=== PATIENT | female | born 1985 | race Caucasian/White ===

== ENCOUNTER → 2017-01-14 | Day surgery (SDC) | payer OTHER ==
[~2017-01-14] VITALS: Ht 157.5 cm; Wt 37.7 kg
[~2017-01-14] MED LIST: ALBUTEROL 0.083% NEBU SOLN 3 ML VIAL INH STA; ALPR0.5T PO; ATROPINE SULFATE 0.1 MG/ML 5ML SYR IV PRN; EpHEDrine SULFATE INJ 50 MG/ML AMP IV PRN; FENTANYL CITRATE INJ 50 MCG/1 ML 2 ML VIAL ONE; FLUT1INH7 INH; IPRASOL4 INH; MIDAZOLAM HCL 1 MG/ML 2ML VIAL ONE; MONT1TAB3 PO; MULT-506 PO; ONDANSETRON INJ 2 MG/ML 2 ML VIAL IV PRN; PROPOFOL IV EMULSION 10 MG/ML 20 ML VIAL IV ONE; SPRIN/30 INH; VNTHFA/IN INH
[2017-01-14 09:48] VITALS: Ht 157.5 cm; Wt 37.7 kg
--- NOTE | 2017-01-14 09:48 | Endo History and Physical ---
History & Physical Date of Service: Jan 14, 2017. Chief Complaint: Weight loss Referring Physician: History of Present Illness Patient with a history of IBD for evaluation of weight loss and a positive anti- gliadin ab. Allergies Coded Allergies: No Known Allergies (Unverified , 01/14/17) Physical Exam General Appearance: no apparent distress Respiratory/Chest: Auscultation: deminished air movement Cardiovascular: Heart Auscultation: RRR Abdomen: Inspection & Palpation: soft Assessment and Plan EGD for evaluation of weight loss and a positive antigliadin ab. Plan EGD today
--- NOTE | 2017-01-14 10:52 | GI REPORT ---
Procedure Date: 01/14/2017 10:35 AM Procedure: Upper GI endoscopy Indications: Weight loss Medicines: Monitored Anesthesia Care Complications: No immediate complications. Estimated blood loss: Minimal. Estimated Blood Loss: Estimated blood loss was minimal. Procedure: Pre-Anesthesia Assessment: - Prior to the procedure, a History and Physical was performed, and patient medications, allergies and sensitivities were reviewed. The patient's tolerance of previous anesthesia was reviewed. - The risks and benefits of the procedure and the sedation options and risks were discussed with the patient. All questions were answered and informed consent was obtained. - Patient identification and proposed procedure were verified prior to the procedure by the physician, the nurse and the commercial art instructor. The procedure was verified in the procedure room. - Pre-procedure physical examination revealed no contraindications to sedation. - ASA Grade Assessment: III - A patient with severe systemic disease. - After reviewing the risks and benefits, the patient was deemed in satisfactory condition to undergo the procedure. - The anesthesia plan was to use monitored anesthesia care (MAC). - Immediately prior to administration of medications, the patient was re-assessed for adequacy to receive sedatives. - The heart rate, respiratory rate, oxygen saturations, blood pressure, adequacy of pulmonary ventilation, and response to care were monitored throughout the procedure. - The physical status of the patient was re-assessed after the procedure. After obtaining informed consent, the endoscope was passed under direct vision. Throughout the procedure, the patient's blood pressure, pulse, and oxygen saturations were monitored continuously. The scope was introduced through the mouth, and advanced to the third part of duodenum. The upper GI endoscopy was accomplished without difficulty. The patient tolerated the procedure well. Findings: The upper third of the esophagus and middle third of the esophagus were normal. The Z-line was irregular and was found 36 cm from the incisors. Biopsies were taken with a cold forceps for histology. Estimated blood loss was minimal. A small hiatus hernia was found. The proximal extent of the gastric folds (end of tubular esophagus) was 36 cm from the incisors. The hiatal narrowing was 38 cm from the incisors. The Z-line was 36 cm from the incisors. Diffuse mild inflammation characterized by congestion (edema) and granularity was found in the entire examined stomach. Biopsies were taken with a cold forceps for histology. Estimated blood loss was minimal. The examined duodenum was normal. Biopsies for histology were taken with a cold forceps for evaluation of celiac disease. Estimated blood loss was minimal. Impression: - Normal upper third of esophagus and middle third of esophagus. - Z-line irregular, 36 cm from the incisors. Biopsied. - Small hiatus hernia. - Gastritis. Biopsied. - Normal examined duodenum. Biopsied. Recommendation: - Discharge patient to home (ambulatory). - Advance diet as tolerated today. - Await pathology results. Marizta May D.O. Maritza May, 01/14/2017 10:51:56 AM This report has been signed electronically. Note Initiated On: 01/14/2017 10:35 AM I attest to the content of the Intraoperative Record and orders documented therein, exceptions below
[2017-01-14 11:15] VITALS: PULSE 82; O2SAT 98
[2017-01-14 11:29] VITALS: BP 101/62; PULSE 77; O2SAT 92
--- NOTE | 2017-01-14 11:45 | Discharge Instructions ---
Endoscopy Patient Instructions Date / Procedure(s) Performed Jan 14, 2017. EGD Allergy Information Coded Allergies: No Known Allergies (Unverified , 01/14/17) Discharge Date / Findings Jan 14, 2017. Normal appearing doudenum Mild gastritis (medication related) Medication Instructions Reported Home Medications Medications Dose Route/Sig Max Daily Dose Days Date Category Singulair (Montelukast Sodium) 10 Mg Tab 1 Tab PO DAILY 90 01/14/17 Reported Ventolin Hfa (Albuterol) 200 Puffs/24613 Mcg Aers 2-4 Puffs INH Q4H PRN 01/14/17 Reported Duoneb (Ipratropium-Albuterol) 3 Ml Nebu 1 Treatment INH Q4H PRN 01/14/17 Reported Spiriva Handihaler (Tiotropium [place]) 30 Puff/540 Mcg Aerp 1 Cap INH DAILY 01/14/17 Reported Breo Ellipta 200-25 Mcg/INH (Fluticasone Furoate-Vilanterol) 1 Inh Inh HS 01/14/17 Reported Provider Instructions Activity Restrictions - No exercising or heavy lifting for 24 hours. - Do not drink alcohol the day of the procedure. - Do not drive a car or operate machinery until the day after the procedure. - Do not make any important decisions or sign important papers in 24 hours after the procedure. Following Day: - Return to full activity which may include returning to work/school. Diet Start your diet with liquids and light foods (jello, soup, juice, toast). Then eat your usual diet if not nauseated. Treatment For Common After Affects For mild abdominal pain, bloating, or excessive gas: - Rest - Eat lightly - Lie on right side Follow-Up Information If small bowel biopsies consistent with Celiac disease will need to have you see a Bulk Plant Operator for assistance with a Gluten free diet. Anesthesia Information What You Should Know You have had a procedure that required some medicine to reduce anxiety and discomfort. This treatment is called moderate sedation. After receiving the treatment, you may be sleepy, but you will be able to breathe on your own. The effects of the treatment may last for several hours. Follow these instructions along with Activity/Diet recommendations noted above: * Do NOT do anything where dizziness or clumsiness would be dangerous. * Rest quietly at home today, then you can be up and about tomorrow. * Have a responsible person stay with you the rest of today. * You may have had an I.V. today. If so, you may take the dressing off later today. Recommendations Call your doctor if: * Trouble breathing * Continuous vomiting for more than 24 hours * Temperature above 101 degrees * Severe abdominal pain or bloating * Pain not relieved by pain medicine ordered * There is increased drainage or redness from any incision * A large amount of rectal bleeding greater than 2-3 tablespoons. (If you had a polyp/s removed or have hemorrhoids, a small amount of blood - from the rectum is to be expected.) * You have any unanswered questions or concerns. IN THE EVENT OF A SERIOUS EMERGENCY, GO TO THE NEAREST EMERGENCY ROOM Your discharge instructions were prepared by provider Maritza May. Patient Instructions Signature Page Cecile Truong Patient (or Guardian) Signature/Date: I have read and understand the instructions given to me by my caregivers. Caregiver/RN/Doctor Signature/Date: The above-named patient and/or guardian has received patient instructions on this date. + Original Patient Signature Page (only) stays with chart. Please make copy for patient.
--- NOTE | 2017-01-14 11:51 | Anesthesiology Progress Note ---
Anesthesia Post Op Note Date & Time Jan 14, 2017 at 11:51 Vital Signs Pain Intensity: 5 Vital Signs Past 12 Hours Date Time Temp Pulse Resp B/P (MAP) Pulse Ox O2 Delivery O2 Flow Rate FiO2 01/14/17 11:29 77 20 101/62 (75) 92 Room Air 01/14/17 11:15 78 20 98/57 (71) 98 Room Air 01/14/17 11:15 82 16 98 Diffusion Mask 9.0 01/14/17 11:00 36.7 87 20 125/68 (87) 99 Diffusion Mask 01/14/17 10:04 36.7 88 20 98/64 (75) 91 Room Air Notes Mental Status: alert / awake / arousable, participated in evaluation Pt Amnestic to Procedure: Yes Nausea / Vomiting: adequately controlled Pain: adequately controlled Airway Patency, RR, SpO2: stable & adequate BP & HR: stable & adequate Hydration State: stable & adequate Anesthetic Complications: no major complications apparent
== END | disposition home or self-care (01) ==
LOC: C.GI 09:22
PROVIDERS: ATTEND Internal Medicine Gastroenterology
DX: K44.9 Diaphragmatic hernia without obstruction or gangrene (principal); K29.51 Unspecified chronic gastritis with bleeding; K20.9 Esophagitis, unspecified; R63.4 Abnormal weight loss; Z87.19 Personal history of other diseases of the digestive system

== ENCOUNTER → 2017-02-25 | Day surgery (SDC) | payer OTHER ==
[2017-02-21 14:37] VITALS: Ht 157.5 cm; Wt 37.7 kg
[~2017-02-25] VITALS: Ht 157.5 cm; Wt 37.7 kg
[~2017-02-25] MED LIST changes: -ALBUTEROL 0.083% NEBU SOLN 3 ML VIAL INH STA; -ATROPINE SULFATE 0.1 MG/ML 5ML SYR IV PRN; -EpHEDrine SULFATE INJ 50 MG/ML AMP IV PRN; -FENTANYL CITRATE INJ 50 MCG/1 ML 2 ML VIAL ONE; +LIDOCAINE HCL 2% 2 ML VIAL (20MG/ML) ONE; -MIDAZOLAM HCL 1 MG/ML 2ML VIAL ONE; +SODIUM CHLORIDE 0.9% 500ML 500 ML IV ONE
--- NOTE | 2017-02-25 13:44 | Endo History and Physical ---
History & Physical Date of Service: Feb 25, 2017. Chief Complaint: abdominal pain Referring Physician: Dr. Arnaud Paredes History of Present Illness The patient presents today for evaluation of weight changes over the last 6 months. She has a history of Crohn's disease and is presently on Remicade. Prior to starting a biologic she was having 15 bowel movements per day. She now notes having problems with constipation. Past Surgical History Hx Cardiac Surgery: No Hx Internal Defibrillator: No Hx Pacemaker: No Hx Abdominal Surgery: Yes (COLON RESECTION, JAE) Hx of Implantable Prosthesis: No Hx Post-Op Nausea and Vomiting: No Hx Cancer Surgery: No Hx Thoracic Surgery: No Hx Orthopedic: Yes (LT LEG REPAIR) Hx Urinary Tract Surgery: No Family History None Social History Smoking Status: Current Every Day Smoker Hx Substance Use: No Hx Alcohol Use: No Allergies Coded Allergies: No Known Allergies (Verified , 02/25/17) Current Medications Reported Home Medications Medications Dose Route/Sig Max Daily Dose Days Date Category Xanax (Alprazolam) 0.5 Mg Tab 0.5 Mg PO Q6H PRN 02/21/17 Reported Multivitamin (Multivitamins) Tab 1 Tab PO QAM 02/21/17 Reported Singulair (Montelukast Sodium) 10 Mg Tab 1 Tab PO QAM 01/14/17 Reported Ventolin Hfa (Albuterol) 200 Puffs/75334 Mcg Aers 2-4 Puffs INH Q4H PRN 01/14/17 Reported Duoneb (Ipratropium-Albuterol) 3 Ml Nebu 1 Treatment INH Q4H PRN 01/14/17 Reported Spiriva Handihaler (Tiotropium [place]) 30 Puff/540 Mcg Aerp 1 Cap INH HS 01/14/17 Reported Breo Ellipta 200-25 Mcg/INH (Fluticasone Furoate-Vilanterol) 1 Inh Inh 1 Puff INH HS 01/14/17 Reported Vital Signs Weight (Kilograms): 37.73 Height (Feet): 5 Height (Inches): 2 Date Time Temp Pulse Resp B/P (MAP) Pulse Ox O2 Delivery O2 Flow Rate FiO2 02/25/17 12:28 36.9 66 16 105/64 (78) 94 Room Air Physical Exam General Appearance: no apparent distress Abdomen: Inspection & Palpation: soft Assessment and Plan Patient with a history of inflammatory bowel disease now with weight changes of the last 6 months. We are pursuing a colonoscopy to evaluate for obvious colorectal changes.
--- NOTE | 2017-02-25 14:13 | GI REPORT ---
Procedure Date: 02/25/2017 1:29 PM Procedure: Colonoscopy Indications: High risk colon cancer surveillance: Crohn's disease Medicines: Monitored Anesthesia Care Complications: No immediate complications. Estimated blood loss: Minimal. Estimated Blood Loss: Estimated blood loss was minimal. Procedure: Pre-Anesthesia Assessment: - Prior to the procedure, a History and Physical was performed, and patient medications, allergies and sensitivities were reviewed. The patient's tolerance of previous anesthesia was reviewed. - The risks and benefits of the procedure and the sedation options and risks were discussed with the patient. All questions were answered and informed consent was obtained. - Patient identification and proposed procedure were verified prior to the procedure by the physician, the nurse and the change director. The procedure was verified in the procedure room. - Pre-procedure physical examination revealed no contraindications to sedation. - ASA Grade Assessment: II - A patient with mild systemic disease. - After reviewing the risks and benefits, the patient was deemed in satisfactory condition to undergo the procedure. - The anesthesia plan was to use monitored anesthesia care (MAC). - Immediately prior to administration of medications, the patient was re-assessed for adequacy to receive sedatives. - The heart rate, respiratory rate, oxygen saturations, blood pressure, adequacy of pulmonary ventilation, and response to care were monitored throughout the procedure. - The physical status of the patient was re-assessed after the procedure. After I obtained informed consent, the scope was passed under direct vision. Throughout the procedure, the patient's blood pressure, pulse, and oxygen saturations were monitored continuously. The scope was introduced through the anus and advanced to the ileocolonic anastomosis. The colonoscopy was performed without difficulty. The patient tolerated the procedure well. The quality of the bowel preparation was good. Findings: The perianal and digital rectal examinations were normal. Pertinent negatives include normal sphincter tone. There was evidence of a prior end-to-side ileo-colonic anastomosis in the ascending colon. This was patent and was characterized by healthy appearing mucosa. The anastomosis was traversed. Normal mucosa was found in the entire colon. Biopsies were taken with a cold forceps from the entire colon for Crohn's disease surveillance and dysplasia surveillance. These biopsy specimens from the entire colon were sent to Pathology. Estimated blood loss was minimal. Internal hemorrhoids were found during endoscopy. The hemorrhoids were mild. I was unable to retroflex in the rectum (fixed fibrosis). The exam was otherwise without abnormality. Impression: - Patent end-to-side ileo-colonic anastomosis, characterized by healthy appearing mucosa. - Normal mucosa in the entire examined colon. Biopsied. - Internal hemorrhoids. - The examination was otherwise normal. Recommendation: - Discharge patient to home (ambulatory). - Advance diet as tolerated today. - Await pathology results. - Repeat colonoscopy in 2 years for surveillance. - Perform magnetic resonance enterography. - No cause of weight loss noted on colonoscopy or EGD. Maritza May D.O. Maritza May, 02/25/2017 2:12:28 PM This report has been signed electronically. Note Initiated On: 02/25/2017 1:29 PM I attest to the content of the Intraoperative Record and orders documented therein, exceptions below
--- NOTE | 2017-02-25 14:14 | Discharge Instructions ---
Endoscopy Patient Instructions Date / Procedure(s) Performed Feb 25, 2017. Colonoscopy Allergy Information Coded Allergies: No Known Allergies (Verified , 02/25/17) Discharge Date / Findings Feb 25, 2017. Healthy-appearing ileocolonic anastomosis Normal colonic mucosa Medication Instructions Reported Home Medications Medications Dose Route/Sig Max Daily Dose Days Date Category Xanax (Alprazolam) 0.5 Mg Tab 0.5 Mg PO Q6H PRN 02/21/17 Reported Multivitamin (Multivitamins) Tab 1 Tab PO QAM 02/21/17 Reported Singulair (Montelukast Sodium) 10 Mg Tab 1 Tab PO QAM 01/14/17 Reported Ventolin Hfa (Albuterol) 200 Puffs/84998 Mcg Aers 2-4 Puffs INH Q4H PRN 01/14/17 Reported Duoneb (Ipratropium-Albuterol) 3 Ml Nebu 1 Treatment INH Q4H PRN 01/14/17 Reported Spiriva Handihaler (Tiotropium [place]) 30 Puff/540 Mcg Aerp 1 Cap INH HS 01/14/17 Reported Breo Ellipta 200-25 Mcg/INH (Fluticasone Furoate-Vilanterol) 1 Inh Inh 1 Puff INH HS 01/14/17 Reported Provider Instructions Activity Restrictions - No exercising or heavy lifting for 24 hours. - Do not drink alcohol the day of the procedure. - Do not drive a car or operate machinery until the day after the procedure. - Do not make any important decisions or sign important papers in 24 hours after the procedure. Following Day: - Return to full activity which may include returning to work/school. Diet Start your diet with liquids and light foods (jello, soup, juice, toast). Then eat your usual diet if not nauseated. Treatment For Common After Affects For mild abdominal pain, bloating, or excessive gas: - Rest - Eat lightly - Lie on right side Follow-Up Information Follow-up with Dr. Arnaud Paredes as scheduled Repeat colonoscopy in 2 years MRI of the small intestine to further evaluate symptoms or weight loss No cause of weight loss seen on recent upper endoscopy or today's colonoscopy Anesthesia Information What You Should Know You have had a procedure that required some medicine to reduce anxiety and discomfort. This treatment is called moderate sedation. After receiving the treatment, you may be sleepy, but you will be able to breathe on your own. The effects of the treatment may last for several hours. Follow these instructions along with Activity/Diet recommendations noted above: * Do NOT do anything where dizziness or clumsiness would be dangerous. * Rest quietly at home today, then you can be up and about tomorrow. * Have a responsible person stay with you the rest of today. * You may have had an I.V. today. If so, you may take the dressing off later today. Recommendations Call your doctor if: * Trouble breathing * Continuous vomiting for more than 24 hours * Temperature above 101 degrees * Severe abdominal pain or bloating * Pain not relieved by pain medicine ordered * There is increased drainage or redness from any incision * A large amount of rectal bleeding greater than 2-3 tablespoons. (If you had a polyp/s removed or have hemorrhoids, a small amount of blood - from the rectum is to be expected.) * You have any unanswered questions or concerns. IN THE EVENT OF A SERIOUS EMERGENCY, GO TO THE NEAREST EMERGENCY ROOM Your discharge instructions were prepared by provider Maritza May. Patient Instructions Signature Page Cecile Truong Patient (or Guardian) Signature/Date: I have read and understand the instructions given to me by my caregivers. Caregiver/RN/Doctor Signature/Date: The above-named patient and/or guardian has received patient instructions on this date. + Original Patient Signature Page (only) stays with chart. Please make copy for patient.
--- NOTE | 2017-02-25 14:26 | Anesthesiology Progress Note ---
Anesthesia Post Op Note Date & Time Feb 25, 2017 at 14:26 Vital Signs Pain Intensity: 3 Vital Signs Past 12 Hours Date Time Temp Pulse Resp B/P (MAP) Pulse Ox O2 Delivery O2 Flow Rate FiO2 02/25/17 14:08 79 16 95/59 (71) 98 Room Air 02/25/17 12:28 36.9 66 16 105/64 (78) 94 Room Air Notes Mental Status: alert / awake / arousable, participated in evaluation Pt Amnestic to Procedure: Yes Nausea / Vomiting: adequately controlled Pain: adequately controlled Airway Patency, RR, SpO2: stable & adequate BP & HR: stable & adequate Hydration State: stable & adequate Anesthetic Complications: no major complications apparent
[2017-02-25 14:40] VITALS: BP 90/52; PULSE 63; O2SAT 93
== END | disposition home or self-care (01) ==
LOC: C.GI 12:02
PROVIDERS: ATTEND Internal Medicine Gastroenterology
DX: R10.9 Unspecified abdominal pain (principal); K50.90 Crohn's disease, unspecified, without complications; K64.8 Other hemorrhoids; Z79.899 Other long term (current) drug therapy; Z90.49 Acquired absence of other specified parts of digestive tract; F17.200 Nicotine dependence, unspecified, uncomplicated; J45.909 Unspecified asthma, uncomplicated; F41.9 Anxiety disorder, unspecified; Z86.69 Personal history of other diseases of the nervous system and sense organs

== ENCOUNTER → 2017-11-13 | Day surgery (SDC) | payer OTHER ==
--- NOTE | 2017-11-12 12:30 | History and Physical ---
History & Physical Date of Service Nov 12, 2017. History & Physical 32-year-old female here for bronchoscopic evaluation on severely persistent asthma: Patient has a diagnosis of ABPA [address] 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 The patient has been on off steroids trying to control her symptoms. Per the patient the diagnosis was made via CT imaging and serum studies. She has also undergone classic skin testing with multiple allergies per the patient but unknown at this time as I do not have the testing in front of me. She recently went to the emergency room on 07/29/[address] at that time revealed diffuse bronchiectasis, mucoid impaction which was suggestive of ABPA. Per the notes Dr. Merrill has done a secondary workup for bronchiectasis, cystic fibrosis and non tuberculosis mycobacterium organisms. At this time the patient is on 30 mg of prednisone daily for this week and is going to taper down 10 mg a every week for the following weeks. She notes some dyspnea on exertion but currently denies: Fever, chills, pleurisy or classic cardiac chest pain. She does note some rhinitis, intermittent coughing up of mucus plugs in even black mucus plugs appreciated from her nose at times. PmHx: 1. Crohn's disease--previously treated with Remicade 2. Internal hemorrhoids 3. Mixed or non-dependent drug abuse (narcotics, benzodiazepine, cocaine) 4. Tobacco use disorder--started age 16 continues to at half a pack per day 6. Esophageal reflux 7. Moderately persistent asthma--with elevated IgE level--diagnosed at age 17 8. Anxiety 9. Recurrent bronchitis 10. 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 Depression 12. Allergic rhinitis 13. PsHx: 1. Colon resection with ileo-colonic anastomosis 2. Left leg repair--fracture of the tibial fibular left leg 3. Colonoscopy 4. EGD 5. Cholecystectomy Family history Father: Diabetes, bladder cancer, previous tobacco history Mother: Fibromyalgia Social history Tobacco: Current every day smoker 0.5 pack per day Lives with her significant other's/father of her children Works: [employer] even on the weekends Medications 1. Albuterol/Ventolin HFA 2. Flonase 1 spray each nostril daily 3. Breo Ellipta 200-25 1 puff b.i.d. 4. Combivent Respimat q.i.d. 5. Ativan 0.5 mg every 6 hours as needed 6. Remeron 15 mg q.h.s. 7. Singular 10 mg daily 8. Multivitamin 9. Spiriva 1 cap daily 10. Nebulizer Allergies Keflex: Rash Vital Signs Height: 5 ft 2 in Weight: 99 lb 5 oz BMI Calculated: 18.16 BSA Calculated: 1.42 Blood Pressure: 110 / 70 Temperature: 98.4 F Heart Rate: 87 Respiration: 16 O2 Saturation: 95, RA Constitutional General appearance: Abnormal. Thin female but no apparent distress. Eyes Conjunctiva and lids: No swelling, erythema or discharge. Pupils and irises: Equal, round and reactive to light. Ears, Nose, Mouth, and Throat External inspection of ears and nose: Normal. Otoscopic examination: Abnormal. Bilateral nasal erythema with some small epistaxis on the right naris. Oropharynx: Abnormal. Posterior oral pharyngeal erythema cobblestoning and notable mucus. Pulmonary Respiratory effort: No increased work of breathing or signs of respiratory distress. Auscultation of lungs: Clear to auscultation. Cardiovascular Palpation of heart: Normal PMI, no thrills. Auscultation of heart: Normal rate and rhythm, normal S1 and S2, without murmurs. Examination of extremities for edema and/or varicosities: Normal. Abdomen Abdomen: Non-tender, no masses. Liver and spleen: No hepatomegaly or splenomegaly. Lymphatic Palpation of lymph nodes in neck: No lymphadenopathy. Musculoskeletal Gait and station: Normal. Digits and nails: Normal without clubbing or cyanosis. Inspection/palpation of joints, bones, and muscles: Normal. Skin Skin and subcutaneous tissue: Normal without rashes or lesions. Neurologic Cranial nerves: Cranial nerves 2-12 intact. Reflexes: 2+ and symmetric. Sensation: No sensory loss. Psychiatric Orientation to person, place, and time: Normal. Mood and affect: Normal.
[~2017-11-13] VITALS: Ht 157.5 cm; Wt 45.6 kg
[2017-11-13] VITALS (7 sets, daily range): BP systolic 86–106; BP diastolic 58–70; PULSE 79–96; TEMP 36.8–37; O2SAT 91–95; Ht 157.5 cm; Wt 45.6 kg
[~2017-11-13] MED LIST changes: +FENTANYL CITRATE INJ 50 MCG/1 ML 2 ML VIAL IV ONE; +IPRA1AER2 INH; +LIDOCAINE 4% INH SOLN 4 ML BTL TOP ONE; -LIDOCAINE HCL 2% 2 ML VIAL (20MG/ML) ONE; +LIDOCAINE HCL 2% LOCAL 50ML VIAL INSTIL ONE; +LIDOCAINE VISCOUS 2% 100ML TOP ONE; +LORA-741 PO; +MIDAZOLAM HCL 5 MG/ML 1 ML VIAL IV ONE; -ONDANSETRON INJ 2 MG/ML 2 ML VIAL IV PRN; +PRED10TA PO; -PROPOFOL IV EMULSION 10 MG/ML 20 ML VIAL IV ONE; -SODIUM CHLORIDE 0.9% 500ML 500 ML IV ONE
--- NOTE | 2017-11-13 08:46 | History & Physical Bridge Note ---
H&P Re-Evaluation Bridge Note: I have examined the patient, reviewed the History & Physical and in the interval since the performance of the History & Physical I have noted the following changes of clinical significance: No changes noted
--- NOTE | 2017-11-13 08:46 | Pre Sedation Assessment ---
Pre Sedation Assessment General Date of Sedation: Nov 13, 2017. Vital Signs Past 12 Hours Date Time Temp Pulse Resp B/P (MAP) Pulse Ox O2 Delivery O2 Flow Rate FiO2 11/13/17 08:00 36.8 96 16 106/70 (82) 91 Room Air Review Cardiovascular: regular rate, rhythm, no edema, no gallop, no JVD, no murmur, normal peripheral pulses Lungs: chest non-tender, lungs clear, normal breath sounds, no respiratory distress, no accessory muscle use Pre-Sedation Airway Assessment Smoking Status: Current Every Day Smoker Hx of Sleep Apnea: No Hx of difficult intubation: No Short Thick Neck: No Thyro-mental Distance: > 3 Finger Breadths Oral Cavity: Dental Abnormalities Mallampati Classification: Class I ASA Classification: Class I NPO Status Date of Last Intake of Fluids: Nov 13, 2017 Time of Last Intake of Fluids: 0100 Date of Last Intake of Solids: Nov 12, 2017 Time of Last Intake of Solids: 1730 Procedure Planning Contraindications for Sedation: None Current Medications Reviewed: Yes Notes The planned sedation has been discussed with the patient. Informed Consent was obtained. I have identified the patient, determined the appropriateness of sedation and have assessed the patient immediately prior to the procedure. All medicine(s) and interventions are by my order.
--- NOTE | 2017-11-13 09:42 | Bronchoscopy Procedure Note ---
Bronchoscopy Procedure Note Procedure: Bronchoscopy, conscious sedation, bronchial lavage Consent: Obtained through the patient placed into the chart Pre-procedural diagnosis: Poorly controlled asthma Post-procedural diagnosis: Poorly controlled asthma Start time: 914 End time: 934 Total time: minutes Analgesia: 2% liquid lidocaine: Via nebulizer 4% gel lidocaine: Via right naris 2% liquid lidocaine: Via bronchoscopy Sedation: Versed IV: 5mg Fentanyl IV: 100g Procedure: The Olympus video bronchoscope was used for this procedure and passed down through the oropharynx and then retroflexed off the soft palate Right and left naris/posterior naris/posterior oropharynx: Anatomically within normal limits, notable erythema bilaterally and along the posterior oropharynx Glottis: Anatomically within normal limits Vocal cords: Proper abduction and abduction, anatomically within normal limits Subglottis/trachea/Geraldine: Anatomically within normal limits Right bronchial tree: Right mainstem bronchus: Anatomically within normal limits Right upper lobe: Anatomically within normal limits, minimal mucus secretions with some mild bronchial crypts Bronchus intermedius: Anatomically within normal limits Right middle lobe: Anatomically within normal limits Right lower lobe: Anatomically within normal limits Left bronchial tree: Left mainstem bronchus: Anatomically within normal limits Left upper lobe: Anatomically within normal limits minimal mucus secretion with some mild bronchial crypts Lingula: Anatomically within normal limits Left lower lobe: Anatomically within normal limits Bronchial alveolar lavage: Right upper lobe EBL: None Complications: None Follow-up: [facility]
--- NOTE | 2017-11-13 09:44 | Discharge Instructions ---
Discharge Instructions Date of Service Nov 13, 2017. Admission Reason for Admission: Allegeric Bronchopulmonary Aspergillosis Discharge Discharge Diagnosis / Problem: Chronic poorly controlled asthma Discharge Goals Goal(s): Diagnostic testing Activity Recommendations Activity Limitations: resume your previous activity Exercise/Sports Limitations: as tolerated Shower/Bathe: no limitations Driving or Machine Use: resume 1 day after discharge . Current Hospital Diet Patient's current hospital diet: Discharge Diet Recommended Diet: Regular Diet Procedures Procedures Performed: Bronchoscopy, conscious sedation and bronchial lavage of the right upper lobe Pending Studies Studies pending at discharge: no Medical Emergencies . Who to Call and When: Medical Emergencies: If at any time you feel your situation is an emergency, please call 911 immediately. . Non-Emergent Contact Non-Emergency issues call your: Chemical Operations Specialist Call Non-Emergent contact if: temperature is above 101 . . "Provider Documentation" section prepared by Gary Garrison. .
--- NOTE | 2017-11-13 09:59 | Post Sedation Assessment ---
Post Sedation Assessment General Date of Sedation Nov 13, 2017. Vital Signs: Vital Signs Past 12 Hours Date Time Temp Pulse Resp B/P (MAP) Pulse Ox O2 Delivery O2 Flow Rate FiO2 11/13/17 09:45 95 15 107/74 95 Oxymask 6 11/13/17 09:40 97 15 98/72 92 Oxymask 6 11/13/17 09:35 96 17 108/77 96 Oxymask 6 11/13/17 09:30 99 19 89/60 96 Oxymask 6 11/13/17 09:25 80 13 90/60 97 Oxymask 6 11/13/17 09:20 85 14 98/67 100 Oxymask 6 11/13/17 09:15 82 17 96/80 100 Oxymask 6 11/13/17 09:09 85 18 99/63 100 Oxymask 6 11/13/17 08:00 36.8 96 16 106/70 (82) 91 Room Air Post Procedure Recovery Score Activity: (2) Moves 4 extremities * Respiration: (2) Deep breath/cough Circulation: (2) +/-20% PreAnes Value Consciousness: (1) Arouseable (by name) Oxygen Saturation: (1) O2 needed for >90% Post Anesthesia Score: 8 Discharge Sedation Level of Care: Fast Track Phase II Post Sedation Plan On clinical assessment, the patient appears to have tolerated the sedation without complications. Patient is recovering as anticipated. Patient will continue to be monitored by nursing and may be discharged when sedation discharge criteria are met per below protocol. Upon Completions of procedure and additional 15 minutes continue every 5 minute vital signs and the P.A.R. score; then discharge to a Phase I or Fast Track to Phase II per the following guidelines: * Discharge Patient to appropriate Phase II area if PAR is 8 or greater or return to pre- procedure baseline. The post - procedure orders will be as directed. * If PAR score is less than 8 or not return to pre-procedure baseline then patient will follow Phase I monitoring till PAR is reached for Phase II. The Phase I may be done in procedure room or may call to secure a Phase I area. * If naloxone or flumazenil are used for reversal, hold in Phase I for an additional 60 -120 minutes before discharge to Phase II. Please call the Sedation Physician to re-evaluate and complete post-note for discharge to Phase II area. Do NOT discharge from procedure sedation or Phase 1 until post- sedation evaluation note is complete by procedure /sedation MD Sedation Discharge Instructions to be given to the patient at discharge to home.
== END | disposition home or self-care (01) ==
LOC: C.ACU 07:22
PROVIDERS: ATTEND Internal Medicine Critical Care Medicine
DX: J45.50 Severe persistent asthma, uncomplicated (principal); K50.90 Crohn's disease, unspecified, without complications; F17.200 Nicotine dependence, unspecified, uncomplicated; F41.9 Anxiety disorder, unspecified; F11.10 Opioid abuse, uncomplicated; F19.10 Other psychoactive substance abuse, uncomplicated; F14.10 Cocaine abuse, uncomplicated; Z98.890 Other specified postprocedural states; Z90.49 Acquired absence of other specified parts of digestive tract; Z79.899 Other long term (current) drug therapy; Z88.1 Allergy status to other antibiotic agents

== ENCOUNTER → 2017-12-10 | Outpatient (CLI) | payer OTHER ==
[~2017-12-10] MED LIST changes: -ALPR0.5T PO; -FENTANYL CITRATE INJ 50 MCG/1 ML 2 ML VIAL IV ONE; -LIDOCAINE 4% INH SOLN 4 ML BTL TOP ONE; -LIDOCAINE HCL 2% LOCAL 50ML VIAL INSTIL ONE; -LIDOCAINE VISCOUS 2% 100ML TOP ONE; -MIDAZOLAM HCL 5 MG/ML 1 ML VIAL IV ONE; -MULT-506 PO
--- NOTE | 2017-12-10 16:02 | DIAGNOSTIC IMAGING REPORT ---
(CHEST) THORAX WITHOUT CT DOSE: 180.93 mGy.cm CLINICAL HISTORY: 32 years-old Female with J47.9 [id number] ABPA (allergic bronchopulmonary asper. TECHNIQUE: Multiaxial CT images of the chest were performed without contrast. A dose lowering technique was utilized adhering to the principles of ALARA. COMPARISON: Chest radiograph 09/24/2017, CT chest 07/29/2017 FINDINGS: Thyroid is homogeneous. Mildly enlarged mediastinal lymph nodes including a 10 mm precarinal and 10 mm subcarinal lymph node with paratracheal lymph nodes measuring up to 9 mm in short axis. Heart is normal in size without pericardial effusion. No thoracic aortic aneurysm identified. There is no pneumothorax or pleural effusion. There is of mild cylindrical bronchiectasis with moderate bronchial wall thickening and areas of mucoid impaction are noted bilaterally along with scattered tree-in-bud nodules which measure up to 3 mm. Additionally, there are scattered groundglass densities with areas of mosaic attenuation suggesting associated air trapping. There is improved aeration of the bilateral lungs from comparison study with resolution of the scattered consolidative densities. Mild biapical pleural-parenchymal scarring. No lobar airspace consolidation identified. 2 mm calcified granuloma of the superior segment right lower lobe. Cholecystectomy clips noted. Soft tissues and breast parenchyma are unremarkable. The bones appear intact. IMPRESSION: 1. Improved aeration of the bilateral lungs from comparison study dated 07/29/2017 with resolution of the scattered bronchovascular distribution of consolidative opacities, predominately seen within the lower lobes suggesting resolved bronchopneumonia. 2. 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 Scattered groundglass densities with areas of mosaic attenuation are compatible with associated air trapping. 3. Scattered tree-in-bud nodularity throughout the lungs bilaterally are compatible with infectious or inflammatory bronchiolitis. 4. Mild mediastinal adenopathy, likely reactive. Electronically signed by: Frederic Martin M.D. 12/10/2017 4:01 PM Dictated Date/Time: 12/10/2017 3:54 PM
== END | disposition home or self-care (01) ==
LOC: C.CTS 15:12
PROVIDERS: ATTEND Internal Medicine Critical Care Medicine
DX: J47.9 Bronchiectasis, uncomplicated (principal); B44.81 Allergic bronchopulmonary aspergillosis